=== PATIENT | female | born 1970 | race Two or more races ===

== ENCOUNTER → 2024-01-17 | Outpatient (CLI) | payer MEDICAID, SELFPAY ==
--- NOTE | 2024-01-17 10:30 | XR_ITS ---
Examination: Breast ultrasound, unilateral, left complete Date and time of exam: January 17, 2024 1041 hours INDICATIONS: Mammogram June 21, 2023 4 mm oval mass 2 to 3:00 position left breast Technique: Real-time roe scale ultrasonographic imaging performed left breast including all 4 quadrants as well as nipple retroareolar and axillary region. Findings: No cystic or solid mass Dilated ducts throughout the breast IMPRESSION: BI-RADS Category 2: Benign findings
--- NOTE | 2024-01-17 11:00 | XR_ITS ---
Examination: Diagnostic digital mammography, unilateral, left Computer aided detection 3-D breast Tomosynthesis, unilateral Date and time of exam: January 17, 2024 1048 hours INDICATIONS: Mammogram June 21, 2023 4 mm oval mass partially indistinct borders in the outer left breast at the 2 to 3:00 position Technique: Nonmagnified MLO, CC views of the left breast have been obtained, reconstructed from 3-D Tomosynthesis images. R2 computer aided detection program utilized for evaluation of suspicious masses and/or abnormal calcifications. 3-D Tomosynthesis images obtained. Findings: Scattered areas of fibroglandular density 2 mm circumscribed nodule outer left breast No suspicious nodules Impression: BI-RADS category 2: Benign findings Return to yearly follow-up mammography
== END | disposition home or self-care (01) ==
PROVIDERS: PCP Registered Nurse Community Health; Referring Provider Registered Nurse Community Health; Visit Provider Registered Nurse Community Health
DX: R92.322 Mammographic fibroglandular density, left breast (principal)
CPT/HCPCS: 76641; 77061; 77065; G0279

== ENCOUNTER 2024-04-10 06:58 | Emergency (ER) | payer MEDICAID, SELFPAY ==
[2024-04-10 06:59] VITALS: BMI 32.1
[2024-04-10 07:12] VITALS: BP 133/87; PULSE 89; RESP 16; TEMP 36.4; O2SAT 98
--- NOTE | 2024-04-10 07:22 | XR_ITS ---
Examination: CT abdomen and pelvis without contrast. Coronal 3-D reconstructions. Sagittal 2-D reconstructions. Date and time of exam:April 10, 2024 0820 hours Comparison May 14, 2023 INDICATIONS: Generalized abdominal pain and bloating sensation today CTDI: vol (mGy): 9.32 DLP: (mGycm): 520 Technique: Axial images of the abdomen have been obtained, 3 mm slice thickness Intravenous contrast material has not been administered. Low dose protocols were performed. One or more of the following dose reduction techniques were used; automated exposure control, adjustment of the mA and/or KV according to patient size, use of iterative reconstruction technique. Findings: Diffuse fatty infiltration throughout the liver Absent gallbladder Spleen not enlarged No pancreatic or adrenal mass No renal or ureteral calculi, no hydronephrosis Aorta normal size No pericecal inflammatory change No bowel obstruction Colonic diverticulosis, no diverticulitis Anteverted uterus Contracted urinary bladder Moderate osteopenia IMPRESSION: No renal or ureteral calculi, no hydronephrosis Negative for pancreatitis No CT findings of appendicitis bowel obstruction or diverticulitis
--- NOTE | 2024-04-10 07:22 | XR_ITS ---
Examination: PA lateral chest 2 views TECHNIQUE: Upright PA lateral chest 2 views Exam date and time: April 10, 2024 0752 hours Comparison May 14, 2023 INDICATIONS: Coughing chest pain today. FINDINGS: Normal heart size. No pneumonia or pulmonary edema Poor inspiratory effort IMPRESSION: Poor inspiratory effort chest x-ray
--- NOTE | 2024-04-10 07:23 | PD.EDRME ---
Rapid Medical Screening Exam RME Arrival date/time: 04/10/24 06:58 52-year-old female presents emergency department today with complaints of abdominal pain and bloating Chief Complaint: Abdominal Pain Time Seen by Provider: 04/10/24 07:04 Vital signs: Vital Signs Temperature 97.6 F 04/10/24 07:12 Pulse Rate 89 04/10/24 07:12 Respiratory Rate 16 04/10/24 07:12 Blood Pressure 133/87 H 04/10/24 07:12 Pulse Oximetry (%) 98 04/10/24 07:12 Oxygen Delivery Method Room Air 04/10/24 07:12
[2024-04-10 08:05] LABS: Collection Type, Urine Clean Catch
[2024-04-10 08:27] LABS: HCG Qualitative,Urine Negative
[2024-04-10 08:34] LABS: Basophils % (Auto) 0 % (0-2.5); Eosinophils # (Auto) 0.1 Thou/mm3 (0.0-0.5); Eosinophils % (Auto) 1 % (0-10); Hematocrit 45.9 % (36.0-46.0); Hemoglobin 14.6 g/dL (12.0-16.0); Immature Granulocytes % (Auto) 2 % (0-0); Immature Granulocytes Auto 0.17 Thou/mm3 (0.00-0.00); Lymphocytes # (Auto) 3.4 Thou/mm3 (1.0-4.8); Lymphocytes % (Auto) 30 % (10-50); Mean Corpuscular HGB Conc 31.8 g/dl (31.0-37.0); Mean Corpuscular Hemoglobin 24.6 pg (25.0-35.0); Mean Corpuscular Volume 77 fL (80-100); Monocytes # (Auto) 0.7 Thou/mm3 (0.0-0.8); Monocytes % (Auto) 6 % (0-12); Neutrophils # (Auto) 7.1 Thou/mm3 (1.8-7.7); Neutrophils % (Auto) 61 % (37-80); Nucleated Red Blood Cell % 0 /100 WBC (0); Platelet Count 438 Thou/mm3 (140-440); RDW Standard Deviation 41.3 fL (36.4-46.3); Red Blood Count 5.94 Miln/mm3 (4.00-5.20); White Blood Count 11.5 Thou/mm3 (3.6-11.0)
[2024-04-10 08:45] LABS: Alanine Aminotransferase 16 U/L (10-49); Albumin, Serum 4.6 gm/dL (3.5-5.0); Albumin/Globulin Ratio 1.5 (1.2-2.2); Alkaline Phosphatase 97 U/L (46-116); Anion Gap 12 (7-16); Aspartate Amino Transferase 12 U/L (0-34); BUN/Creatinine Ratio 12 Ratio (12-20); Bilirubin,Total 0.5 mg/dL (0.3-1.2); Blood Urea Nitrogen 11 mg/dL (9-23); Calcium 10.2 mg/dL (8.3-10.6); Calcium (Corrected) 10.2 mg/dL (8.5-10.1); Carbon Dioxide 25.9 mMol/L (20.0-31.0); Chloride 103 mMol/L (98-107); Creatinine (Component) 0.9 mg/dL (0.6-1.3); Estimated Creatinine Clearance 70.7 mL/min (>60); Glucose 146 mg/dL (74-106); Lipase 53 U/L (12-53); Osmolality,Calculated 283 (275-295); Potassium 3.7 mMol/L (3.4-5.1); Sodium 141 mMol/L (136-145); Total Protein 7.6 gm/dL (5.7-8.2); eGFR > 60 See Note
[2024-04-10 09:14] LABS: Bacteria,Urine Rare; Bilirubin,Urine Negative (Negative); Blood,Urine 1+ (Negative); Clarity,Urine Turbid (Clear/Hazy); Color,Urine Yellow (Lt Yel-Yel); Culture Indicated,Urine Not Indicated; Glucose, Urine Negative (Negative); Ketones,Urine 3+ (Negative); Leukocyte Esterase,Urine Negative (Negative); Nitrite,Urine Negative (Negative); PH,Urine 6.5 (5.0-7.0); Protein,Urine 1+ (Neg - Trace); RBC,Urine 17 /hpf (0-3); Specific Gravity,Urine 1.029 (1.001-1.035); Squamous Epithelial Cell,Urine 10 /hpf (0-5); Urobilinogen,Urine Negative mg/dL (0.0-1.0); WBC,Urine 3 /hpf (0-5)
--- NOTE | 2024-04-10 09:28 | EDNOTE_ITS ---
ED Abdominal Pain RME/HPI General Chief Complaint: Abdominal Pain Stated complaint: ABD PAIN, BLOATING AND GAS X 2DAYS Time seen by provider: 04/10/24 07:04 Arrival date/time: 04/10/24 06:58 52-year-old female presents emergency department today with complaints of abdominal pain and bloating symptoms remittent for last couple of months worse last couple days Limitations: no limitations RME / HPI RME / HPI narrative: 04/10/24 06:58 52-year-old female presents emergency department today with complaints of abdominal pain and bloating Related Data Previous Rx's ?Medication ?Instructions ?Recorded amoxicillin 875 mg-potassium 1 tab PO BID #14 tabs clavulanate 125 mg tablet ondansetron 4 mg disintegrating 4 mg PO Q8H PRN nausea and 05/18/22 tablet vomiting #10 tabs dicyclomine 10 mg capsule 10 mg PO TID #30 caps omeprazole 20 mg capsule,delayed 20 mg PO QDAY #20 cap s 05/14/23 release metoclopramide HCl 10 mg tablet 10 mg PO Q6H PRN nause a and 04/10/24 (Reglan) vomiting #30 tabs Allergies Allergy/AdvReac Type Severity Reaction Status Date / Time No Known Allergies Allergy Verified 05/14/23 08:25 Review of Systems Review of Systems Systems Reviewed: All systems reviewed, normal except as documented Constitutional Constitutional: Reports system reviewed and no additional complaints, except as documented, Denies fever(s) and Denies headache(s) Eyes Eyes: Reports system reviewed and no additional complaints, except as documented and Denies blurry vision ENT Ears, Nose, Mouth, and Throat: Reports system reviewed and no additional complaints, except as documented, Denies headache(s), Denies nasal congestion and Denies nasal discharge Cardiovascular Cardiovascular: Reports system reviewed and no additional complaints, except as documented, Denies chest pain and Denies dyspnea Respiratory Respiratory: Reports system reviewed and no additional complaints, except as documented, Denies chest congestion, Denies cough and Denies dyspnea Gastrointestinal Gastrointestinal: Reports system reviewed and no additional complaints, except as documented, Reports abdominal pain, Denies hematemesis and Denies nausea Integumentary/Breasts Skin/Breast: Reports system reviewed and no additional complaints, except as documented and Denies rash Neurologic Neurologic: Reports system reviewed and no additional complaints, except as documented, Reports as per HPI and Denies headache(s) Past Medical History Past Medical History CARDIAC: Positive Hypercholesterolemia; Negative Cardiac Disorders or Congestive Heart Failure RESPIRATORY: Negative Chronic Obstructive Pulmonary Disease (COPD) or Asthma GENITOURINARY: Negative Renal Disease ENDOCRINE: Positive Endocrine Disorders and Diabetes Mellitus Type 2 (takes Ozempic); Negative Diabetes Mellitus Type 1 HEMATOLOGIC: Negative Sickle Cell Disease Social History SMOKING STATUS: Never smoker ED Exam General Limitations: Present no limitations General appearance: Present alert and in no apparent distress Head Head exam: Present atraumatic, normocephalic and normal inspection Eye Eye exam: Present normal appearance, PERRL and EOMI; Absent conjunctival inj ection ENT ENT exam: Present normal exam, normal oropharynx and mucous membranes moist Neck Neck exam: Present normal inspection, full ROM and trachea midline Chest Chest inspection: Present normal inspection and symmetric chest wall rise Respiratory Respiratory exam: Present normal lung sounds bilaterally; Absent respiratory distress or wheezes Cardiovascular Cardiovascular exam: Present regular rate, normal rhythm and normal heart sounds; Absent bradycardia or tachycardia Abdominal Exam Abdominal exam: Present soft and normal bowel sounds; Absent distention, tenderness, guarding, rebound or rigidity Extremities Exam Extremities exam: Present normal inspection and full ROM Back Exam Back exam: Present normal inspection and full ROM Neurological Exam Neurological exam: Present alert, oriented X3 and CN II-XII intact Psychiatric Psychiatric exam: Present normal affect and normal mood Skin Skin exam: Present warm, dry, intact and normal color Course Quality Measures none Orders Category Date Time Status CT abdomen pelvis wo con Stat Exams 04/10/24 07:22 Completed XR chest 2V Stat Exams 04/10/24 07:22 Completed CBC Stat Lab 04/10/24 07:50 Completed Comprehensive Metabolic Panel Stat Lab 04/10/24 07:50 Completed HCG Qualitative,Urine Stat Lab 04/10/24 07:57 Completed Lipase Stat Lab 04/10/24 07:50 Completed UA, C/S IF [Urinalysis, C/S if Indicated] Stat Lab 04/10/24 07:57 Completed Metoclopramide [Reglan] Med 04/10/24 11:29 Discontinued 10 mg PO X1 ONE Vital Signs Vital signs: Vital Signs Temperature 97.6 F 04/10/24 07:12 Pulse Rate 89 04/10/24 07:12 Respiratory Rate 16 04/10/24 07:12 Blood Pressure 133/87 H 04/10/24 07:12 Pulse Oximetry (%) 98 04/10/24 07:12 Oxygen Delivery Method Room Air 04/10/24 07:12 O2 saturation 98% room air within normal limits Abdominal Pain MDM MDM Narrative MDM Narrative:: 52-year-old female presents emergency department today with complaints of abdominal pain and bloating symptoms remittent for last couple of months worse last couple days On exam patient well-appearing patient does not appear ill or toxic in no acute distress patient is soft nontender abdomen On exam patient does not have any distention negative Serrano sign negative reports point tenderness Lab work as well as imaging obtained no acute emergent findings noted Patient discharged home in no distress to follow-up with primary care doctor in the next 24 to 48 hours and for any worsening symptoms to return to the ER immediately Patient data External records reviewed:: [facility] previous records Clinical information provided by:: patient Social determinants that could affect healthcare access:: none Patient has the following chronic illnesses:: History How is presenting disease/condition affected by chronic disease/condition?: uneffected by Evaluation data The following diagnostics were reviewed and interpreted by me:: lab results and radiology exam(s) Lab and/or radiology exams considered but not ordered:: Labs radiology obtained Interpretation Summary: Reviewed by me Medications / Prescriptions Medications or Prescriptions considered but not ordered:: Given Medication administrations:: Medication Administration History Discontinued Medications Metoclopramide HCl (Metoclopramide 5 Mg Tablet) 10 mg PO X1 ONE Stop: 04/10/24 11:30 Last Admin: 04/10/24 11:43 Dose: 10 mg Documented By: OA Given Consultations Consultation(s) initiated? (list below): No Diagnosis Differential diagnosis abdominal pain: abdominal pain, acute appendicitis, pancreatitis and small bowel obstruction Most likely diagnosis given after review of the tests above:: Abdominal pain Admission Indicated Admission indicated?: not indicated Admission Request Was there a request for admission?: No Disposition Plan Disposition Plan: Discharge Discharge Attestation Discharge Attestation: The patient and all family members were given an opportunity to ask questions and understood the discharge instructions. Discharge instructions specifically effects, indications for sooner follow up or return to the emergency department, and the expected course of current diagnosis. Patient condition: Stable Discharge Plan Plan Patient Disposition: HOME (Self Care) Disposition Comment: Stable Prescriptions/Referrals Prescriptions/Med Rec: New metoclopramide HCl [Reglan] 10 mg tablet 10 mg PO Q6H PRN (Reason: nausea and vomiting) Qty: 30 0RF No Action dicyclomine 10 mg capsule 10 mg PO TID Qty: 30 0RF omeprazole 20 mg capsule,delayed release(DR/EC) 20 mg PO QDAY Qty: 20 0RF amoxicillin-pot clavulanate 875-125 mg tablet 1 tab PO BID Qty: 14 0RF ondansetron 4 mg tablet,disintegrating 4 mg PO Q8H PRN (Reason: nausea and vomiting) Qty: 10 0RF Referrals: Bessie Blake FNP [Primary Care Provider] - 04/11/24 Problem List Clinical Impression: Abdominal pain Patient/Caregiver Discharge Instructions Education Materials: Abdominal Pain Additional Instructions: Please follow up with your primary care doctor in the next 24-48hrs for any worsening symptoms return here immediately Please request referral to GI specialist Please request H. pylori testing from your PCP Print Language: Sammarinese Stand Alone Forms: Aidee Award Info., Patient Portal Info Letter OSBALDO/MAINOR Supervising Physician OSBALDO/MAINOR Supervising Physician: Dr Hickman
[2024-04-10] MEDS: METOCLOPRAMIDE 5 MG TABLET 10 MG PO (11:43)
== END 2024-04-10 12:13 | disposition home or self-care (01) ==
PROVIDERS: Nurse Practitioner Primary Care; Emergency Provider Emergency Medicine; PCP Registered Nurse Community Health
DX: R10.9 Unspecified abdominal pain (principal); E11.9 Type 2 diabetes mellitus without complications
CPT/HCPCS: 36415; 71046; 74176; 80053; 81001; 81025; 83690; 85025; 99284; A9270

== ENCOUNTER → 2024-07-01 | Outpatient (CLI) | payer MEDICAID, SELFPAY ==
--- NOTE | 2024-07-01 08:15 | XR_ITS ---
Examination: Screening digital mammography, bilateral Computer aided detection 3-D breast Tomosynthesis, bilateral Date and time of exam: July 01, 2024 0816 hours Compared to mammograms dating to April 13, 2022 Indication: Screening Technique: Nonmagnified MLO, CC views of the breasts to been obtained, reconstructed from 3-D Tomosynthesis images. R2 computer aided detection program utilized for evaluation of suspicious masses and/or abnormal calcifications. 3-D Tomosynthesis images obtained. Findings: Scattered areas of fibroglandular density. Benign calcifications. No interval suspicious masses Impression: BI-RADS category II: Benign Findings. Recommend 1 year follow-up mammogram.
== END | disposition home or self-care (01) ==
LOC: CDIM 08:09
PROVIDERS: Referring Provider Registered Nurse Community Health; Visit Provider Registered Nurse Community Health
DX: Z12.31 Encounter for screening mammogram for malignant neoplasm of breast (principal); R92.323 Mammographic fibroglandular density, bilateral breasts; R92.1 Mammographic calcification found on diagnostic imaging of breast
CPT/HCPCS: 77063; 77067

== ENCOUNTER → 2025-01-07 | Outpatient (CLI) | payer MEDICAID, SELFPAY ==
--- NOTE | 2025-01-07 07:15 | XR_ITS ---
Examination: Abdomen sonogram, complete Date and time of exam: January 07, 2025, 1924 hours INDICATIONS: Right side abdominal pain 1 month. Technique: Multiple real-time grayscale transabdominal sonographic images of the abdomen have been obtained. Findings: Absent gallbladder Normal common bile duct 0.3 cm Pancreatic head 3.1 cm Aorta not enlarged Liver 15.2 cm fatty infiltration irregular contour Normal hepatopetal portal venous flow Patent IVC Right kidney 10.9 cm left kidney 11.7 cm Right renal cortex 1.2 cm left renal cortex 1.9 cm Moderate renal scar formation no hydronephrosis Spleen 8.4 cm IMPRESSION: Absent gallbladder Normal common bile duct Suspect primary hepatocellular disease Moderate renal scar formation
== END | disposition home or self-care (01) ==
LOC: CDIM 06:55
PROVIDERS: PCP Registered Nurse Community Health; Referring Provider Internal Medicine Gastroenterology; Visit Provider Internal Medicine Gastroenterology
DX: N28.89 Other specified disorders of kidney and ureter (principal); Z90.49 Acquired absence of other specified parts of digestive tract
CPT/HCPCS: 76700

== ENCOUNTER 2025-01-12 07:08 | Emergency (ER) | payer MEDICAID, SELFPAY ==
[2025-01-12 07:18] VITALS: BP 146/86; PULSE 97; RESP 18; TEMP 36.9; O2SAT 97; BMI 30.7
--- NOTE | 2025-01-12 07:35 | PD.EDRME ---
Rapid Medical Screening Exam [facility] Arrival date/time: 01/12/25 07:08 This is a 54-year-old female that comes into the emergency room with complaints of abdominal pain to the epigastric area right lower quadrant and right lower back. Patient states the pains been going on for the past 3 weeks. Patient denies fever, nausea, vomiting, diarrhea. Patient states that she feels very bloated. Patient reports that she has some relief when she has a bowel movement. Patient denies any other symptoms. Patient reports history of diabetes. I have greeted and performed a focused initial assessment of this patient. Initial appropriate labs ordered at this time. A comprehensive ED assessment and evaluation of the patient and analysis of all test and completion of medical decision making process will be conducted by additional ED provider. Chief Complaint: Abdominal Pain Time Seen by Provider: 01/12/25 07:09 Vital signs: Vital Signs Temperature 98.4 F 01/12/25 07:18 Pulse Rate 97 01/12/25 07:18 Respiratory Rate 18 01/12/25 07:18 Blood Pressure 146/86 H 01/12/25 07:18 Pulse Oximetry (%) 97 01/12/25 07:18 Oxygen Delivery Method Room Air 01/12/25 07:18 Exam: Alert and oriented, breathing even and unlabored. No pain to palpation to right lower quadrant Clinical Impression: Abdominal pain
[2025-01-12 07:54] LABS: Basophils # (Auto) 0.0 Thou/mm3 (0.0-0.2); Basophils % (Auto) 0 % (0-2.5); Eosinophils # (Auto) 0.1 Thou/mm3 (0.0-0.5); Eosinophils % (Auto) 1 % (0-10); Hematocrit 40.8 % (36.0-46.0); Hemoglobin 12.6 g/dL (12.0-16.0); Immature Granulocytes Auto 0.03 Thou/mm3 (0.00-0.00); Lymphocytes # (Auto) 2.2 Thou/mm3 (1.0-4.8); Lymphocytes % (Auto) 26 % (10-50); Mean Corpuscular HGB Conc 30.9 g/dl (31.0-37.0); Mean Corpuscular Hemoglobin 24.7 pg (25.0-35.0); Mean Corpuscular Volume 80 fL (80-100); Monocytes # (Auto) 0.4 Thou/mm3 (0.0-0.8); Monocytes % (Auto) 4 % (0-12); Neutrophils # (Auto) 5.6 Thou/mm3 (1.8-7.7); Neutrophils % (Auto) 68 % (37-80); Nucleated Red Blood Cell # 0.00 Thou/mm3 (0.00-0.00); Nucleated Red Blood Cell % 0 /100 WBC (0); Platelet Count 344 Thou/mm3 (140-440); RDW Standard Deviation 43.0 fL (36.4-46.3); Red Blood Count 5.10 Miln/mm3 (4.00-5.20); White Blood Count 8.3 Thou/mm3 (3.6-11.0)
[2025-01-12 08:17] LABS: Alanine Aminotransferase 21 U/L (10-49); Albumin, Serum 4.8 gm/dL (3.5-5.0); Albumin/Globulin Ratio 2.0 (1.2-2.2); Alkaline Phosphatase 110 U/L (46-116); Anion Gap 11 (7-16); Aspartate Amino Transferase 20 U/L (0-34); BUN/Creatinine Ratio 10 Ratio (12-20); Bilirubin,Total 0.3 mg/dL (0.3-1.2); Blood Urea Nitrogen 8 mg/dL (9-23); Calcium 9.1 mg/dL (8.3-10.6); Calcium (Corrected) 9.1 mg/dL (8.5-10.1); Carbon Dioxide 24.7 mMol/L (20.0-31.0); Chloride 107 mMol/L (98-107); Creatinine (Component) 0.8 mg/dL (0.6-1.3); Estimated Creatinine Clearance 86.0 mL/min (>60); Globulin 2.4 gm/dL (2.3-3.5); Glucose 183 mg/dL (74-106); Lipase 54 U/L (12-53); Osmolality,Calculated 288 (275-295); Potassium 3.8 mMol/L (3.4-5.1); Sodium 143 mMol/L (136-145); Total Protein 7.2 gm/dL (5.7-8.2); eGFR > 60 See Note
[2025-01-12 08:19] LABS: Collection Type, Urine Pedi-Bag
[2025-01-12 08:31] LABS: Bacteria,Urine Rare; Bilirubin,Urine Negative (Negative); Blood,Urine Trace (Negative); Clarity,Urine Clear (Clear/Hazy); Culture Indicated,Urine Not Indicated; Glucose, Urine Trace (Negative); Ketones,Urine Negative (Negative); Leukocyte Esterase,Urine Negative (Negative); Nitrite,Urine Negative (Negative); PH,Urine 6.0 (5.0-7.0); Protein,Urine Negative (Neg - Trace); RBC,Urine 1 /hpf (0-3); Specific Gravity,Urine 1.006 (1.001-1.035); Squamous Epithelial Cell,Urine 1 /hpf (0-5); Urobilinogen,Urine Negative mg/dL (0.0-1.0); WBC,Urine 1 /hpf (0-5)
--- NOTE | 2025-01-12 08:34 | PC.NURSE ---
PT STATES SHE HAS BEEN HAVING A SHARP PAIN TO HER RIGHT ABDOMEN FOR 3 WEEKS, STATES IT FEELS BETTER AFTER SHE HAS A BM, STATES SHE HAD 2 THIS MORNING THAT WERE NORMAL. VSS ON TELE, CALL [facility] [place], WILL CONT W/POC
[2025-01-12 08:42] LABS: Color,Urine Lt-Yellow (Lt Yel-Yel)
[2025-01-12 08:44] LABS: HCG Qualitative,Urine Negative
--- NOTE | 2025-01-12 09:40 | PD.EDABDPN ---
ED Abdominal Pain RME/HPI General Chief Complaint: Abdominal Pain Stated complaint: ABD PAIN Time seen by provider: 01/12/25 07:09 Arrival date/time: 01/12/25 07:08 Limitations: no limitations RME / HPI RME / HPI narrative: 01/12/25 07:08 This is a 54-year-old female that comes into the emergency room with complaints of abdominal pain to the epigastric area right lower quadrant and right lower back. Patient states the pains been going on for the past 3 weeks. Patient denies fever, nausea, vomiting, diarrhea. Patient states that she feels very bloated. Patient reports that she has some relief when she has a bowel movement. Patient denies any other symptoms. Patient reports history of diabetes. I have greeted and performed a focused initial assessment of this patient. Initial appropriate labs ordered at this time. A comprehensive ED assessment and evaluation of the patient and analysis of all test and completion of medical decision making process will be conducted by additional ED provider. DR. ABIMAEL SORIA ED EVALUATION: 54-year-old female presents to the Emergency Department with complaint of right flank pain that sometimes radiates to the back. Onset of symptoms 3 weeks. She denies fevers, chills, nausea, vomiting, dysuria, or hematuria. Last bowel movement was this morning, normal brown, with no blood noted. She reports the pain improves after having a bowel movement. She reports the pain worsens with eating. She has a history of cholecystectomy 20 years ago, hypercholesterolemia, and type 2 diabetes mellitus. Related Data Previous Rx's ?Medication ?Instructions ?Recorded amoxicillin 875 mg-potassium 1 tab PO BID #14 tabs 05/18/22 clavulanate 125 mg tablet ondansetron 4 mg disintegrating 4 mg PO Q8H PRN nausea and 05/18/22 tablet vomiting #10 tabs dicyclomine 10 mg capsule 10 mg PO TID #30 caps 05/14/23 omeprazole 20 mg capsule,delayed 20 mg PO QDAY #20 caps 05/14/23 release metoclopramide HCl 10 mg tablet 10 mg PO Q6H PRN nausea and 04/10/24 (Reglan) vomiting #30 tabs Allergies Allergy/AdvReac Type Severity Reaction Status Date / Time No Known Allergies Allergy Verified 01/12/25 07:12 Review of Systems Review of Systems Systems Reviewed: All systems reviewed, normal except as documented Past Medical History Past Medical History CARDIAC: Positive Hypercholesterolemia ENDOCRINE: Positive Endocrine Disorders and Diabetes Mellitus Type 2 Social History SMOKING STATUS: Never smoker SUBSTANCE USE: does not use ALCOHOL: Never ED Exam General Limitations: Present no limitations General appearance: Present alert and in no apparent distress Head Head exam: Present atraumatic, normocephalic and normal inspection Eye Eye exam: Present normal appearance, PERRL and EOMI ENT ENT exam: Present normal exam, normal oropharynx and mucous membranes moist Neck Neck exam: Present normal inspection, full ROM and trachea midline Chest Chest inspection: Present normal inspection and symmetric chest wall rise Respiratory Respiratory exam: Present normal lung sounds bilaterally Cardiovascular Cardiovascular exam: Present regular rate, normal rhythm and normal heart sounds Abdominal Exam Abdominal exam: Present soft; Absent distention, tenderness or guarding Extremities Exam Extremities exam: Present normal inspection and full ROM Back Exam Back exam: Present normal inspection and full ROM Neurological Exam Neurological exam: Present alert, oriented X3 and CN II-XII intact Psychiatric Psychiatric exam: Present normal affect and normal mood Skin Skin exam: Present warm, dry, intact and normal color Course Quality Measures none Orders Category Date Time Status CT Screening NOW Care 01/12/25 09:[address] abdomen pelvis w con Stat Exams 01/12/25 09:40 Completed CBC Stat Lab 01/12/25 07:40 Completed Comprehensive Metabolic Panel Stat Lab 01/12/25 07:40 Completed HCG Qualitative,Urine Stat Lab 01/12/25 07:55 Completed Lipase Stat Lab 01/12/25 07:40 Completed Urinalysis, C/S if Indicated Stat Lab 01/12/25 07:55 Completed Dextrose 50% Syr [D50w Syringe Abboject] Med 01/12/25 10:18 Discontinued 50 ml IVP X1 ONE Famotidine [Pepcid] Med 01/12/25 09:41 Discontinued 20 mg PO X1 ONE Vital Signs Vital signs: Vital Signs Temperature 98.4 F 01/12/25 07:18 Pulse Rate 97 01/12/25 07:18 Respiratory Rate 18 01/12/25 07:18 Blood Pressure 146/86 H 01/12/25 07:18 Pulse Oximetry (%) 97 01/12/25 07:18 Oxygen Delivery Method Room Air 01/12/25 07:18 Abdominal Pain MDM MDM Narrative MDM Narrative:: IKaren am scribing for and in the presence of Dr. Mckenzie. 54-year-old female with right flank pain radiating to the back, improved after bowel movements, and worsened with eating. Normal exam. Vital signs and exam as listed. Concern for partial bowel obstruction, urine tract infection, pancreatitis, among others. Ordered labs, CT abdomen pelvis and offer medication for symptom relief. Labs without acute hematologic or significant metabolic abnormality, patient lipase not elevated, urinalysis without evidence of infection. Patient is not . 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 Per the radiologist one of the ureters is chronically obstructed with stones measuring up to 1 cm. The other is moderately dilated with surrounding inflammatory changes. Patient also with fatty liver. Patient also with diverticulosis. Hiatal hernia. On multiple reevaluations patient hemodynamically stable not distressed will discharge to home with close return precautions follow-up with primary care doctor as well as recommendation that she establish care with urologist. Patient data External records reviewed:: [facility] previous records Clinical information provided by:: patient Social determinants that could affect healthcare access:: none Patient has the following chronic illnesses:: She has a history of cholecystectomy 20 years ago, hypercholesterolemia, and type 2 diabetes mellitus. How is presenting disease/condition affected by chronic disease/condition?: uneffected by Evaluation data The following diagnostics were reviewed and interpreted by me:: lab results and radiology exam(s) Lab and/or radiology exams considered but not ordered:: none Interpretation Summary: See MDM narrative above. RADIOLOGY Procedure(s): CT abdomen pelvis w con Accession Number(s): [id number] cc: Christian Celis MD; Bessie BlakeP; Geri Mckenzie MD~ EXAMINATION: CT abdomen pelvis w con ORDERING PROVIDER: Geri Mckenzie MD HISTORY: partial sbo TECHNIQUE: After the uneventful administration of 60 cc Isovue-370 contrast and no oral contrast, volumetric helical CT was used in the imaging acquisition of the abdomen and pelvis with 2D and 3D reformats. RADIATION DOSE: DLP 638 mGy-cm COMPARISON: 01/07/2025, ultrasound abdomen. 04/10/2024, CT abdomen pelvis. 02/28/2021, CT abdomen pelvis. FINDINGS: LIVER: Micronodular liver contour. Hepatic steatosis. BILIARY: Status post cholecystectomy. Common bile duct measures up to 1.0 cm, unchanged. PANCREAS: Mild fatty atrophy. SPLEEN: Incidental splenule. ADRENAL GLANDS: Normal. KIDNEYS: Similar ptotic right kidney with what appears to be a duplicated collecting system including multiple ureteral stones. No gross hydronephrosis. Scarring involving the right kidney. Left kidney grossly unremarkable. URETERS: Multiple right ureteral stones within one of the collecting systems measuring up to 1.0 cm. Grossly similar to prior. Mild to moderate hydroureter of the other ureter without visible stone, but with ureterectasis. BLADDER: Normal. COLON: Numerous colonic diverticula without surrounding inflammatory changes. APPENDIX: Normal. SMALL BOWEL: Nondilated. STOMACH: Small hiatal hernia. VASCULATURE: Mild aortoiliac vasculopathic changes. Duplicated right renal veins and arteries. Similar narrowing of the IVC near the diaphragmatic hiatus. Coronary artery atherosclerotic disease. PELVIS: No free fluid. LYMPH NODES: No abnormally enlarged lymph nodes identified. LUNG BASES: Similar 5 mm left interfissural lymph node series 10 image 36. BONES: L5 on the right pseudo articulates with the sacrum. ABDOMINAL WALL: Small umbilical fat filled hernia with subcentimeter neck. IMPRESSION: 1. 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 One of the ureters is chronically obstructed with stones measuring up to 1.0 cm. The other is moderately dilated with surrounding inflammatory changes. This could be due to urinary tract infection in the setting of recently passed stone, vesicoureteral reflux, or ureterocele. Patient may benefit from urology referral and routine outpatient CT urogram. 2. Hepatic steatosis with suggestion of micronodular liver contour concerning for developing cirrhosis. 3. Extensive colonic diverticulosis without CT findings for diverticulitis. 4. Small hiatal hernia. 5. 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 Dictated By: Christian Celis MD Medications / Prescriptions Medications or Prescriptions considered but not ordered:: none Medication administrations:: Medication Administration History Discontinued Medications Dextrose (Dextrose 50%-Water Inj 50 Ml Syringe) 50 ml IVP X1 ONE Stop: 01/12/25 10:19 Last Admin: 01/12/25 10:24 Dose: 50 ml Documented By: ERNESTINA Famotidine (Famotidine 20 Mg Tablet) 20 mg PO X1 ONE Stop: 01/12/25 09:42 Last Admin: 01/12/25 10:11 Dose: 20 mg Documented By: ERNESTINA see above Consultations Consultation(s) initiated? (list below): No Diagnosis Differential diagnosis abdominal pain: abdominal pain, calculus of kidney and other (gastritis and biliary duct pathology) Most likely diagnosis given after review of the tests above:: Duplicated collecting system Obstructed, uropathy Admission Indicated Admission indicated?: not indicated Admission Request Was there a request for admission?: No Disposition Plan Disposition Plan: Discharge Discharge Attestation Discharge Attestation: The patient and all family members were given an opportunity to ask questions and understood the discharge instructions. Discharge instructions specifically effects, indications for sooner follow up or return to the emergency department, and the expected course of current diagnosis. Patient condition: Stable Discharge Plan Plan Patient Disposition: HOME (Self Care) Prescriptions/Referrals Prescriptions/Med Rec: No Action dicyclomine 10 mg capsule 10 mg PO TID Qty: 30 0RF omeprazole 20 mg capsule,delayed release(DR/EC) 20 mg PO QDAY Qty: 20 0RF metoclopramide HCl [Reglan] 10 mg tablet 10 mg PO Q6H PRN (Reason: nausea and vomiting) Qty: 30 0RF amoxicillin-pot clavulanate 875-125 mg tablet 1 tab PO BID Qty: 14 0RF ondansetron 4 mg tablet,disintegrating 4 mg PO Q8H PRN (Reason: nausea and vomiting) Qty: 10 0RF Referrals: Bessie Blake FNP [Primary Care Provider] - In 1 week Problem List Clinical Impression: Duplicated collecting system, Obstructed, uropathy Patient/Caregiver Discharge Instructions Education Materials: Monitoring Kidney Health Additional Instructions: Your labs today did not identify any acute abnormalities your urine is not infected. The CT scan showed that you have a duplicated collecting system and have a stone that appears to be chronically obstructing one of your ureters. You do not have any evidence of kidney dysfunction on your labs. You also have evidence of hiatal hernia, fatty liver as well as diverticulosis. It is important that you follow-up with your primary care doctor and establish care with a urologist to further discuss these findings. Please return to the emergency room immediately if you have any worsening symptoms, or any other symptom of concern. Print Language: Italian Stand Alone Forms: Aidee Award Info., Patient Portal Info Letter
[2025-01-12] MEDS: FAMOTIDINE 20 MG TABLET PO (10:11)
[2025-01-12] MEDS: DEXTROSE 50%-WATER INJ 50 ML SYRINGE IVP (10:24)
== END 2025-01-12 13:54 | disposition home or self-care (01) ==
PROVIDERS: Nurse Practitioner Family; Emergency Provider Emergency Medicine; PCP Registered Nurse Community Health
DX: Q63.8 Other specified congenital malformations of kidney (principal)
CPT/HCPCS: 36415; 74177; 80053; 81001; 81025; 83690; 85025; 99283; A4649; Q9967; A9270